=== PATIENT | male | born 1965 | race African-American/Black ===

== ENCOUNTER 2023-09-26 04:41 | Emergency (ER) | payer MEDICAID ==
[~2023-09-26] VITALS: Ht 185.4 cm; Wt 96.0 kg
[2023-09-26 04:47] VITALS: O2SAT 99
[2023-09-26 05:55] LABS: BASOPHILS % 1.3 % (0.0-2.0); EOSINOPHILS % 1.8 % (0.0-5.0); HEMATOCRIT. 39.2 % (42.0-52.0); LYMPHOCYTES % 14.3 % (20.0-50.0); MEAN CORPUSCULAR HGB CONC 33.1 g/dL (31.0-37.0); MEAN CORPUSCULAR VOLUME 87.8 fL (80.0-94.0); MEAN PLATELET VOLUME 7.8 fl (7.4-10.4); MONOCYTES % 9.1 % (2.0-8.0); NEUTROPHILS % 73.5 % (40.0-76.0); PLATELET 232 x1000/uL (130-400); RED BLOOD CELL COUNT 4.47 mill/uL (4.7-6.1); RED CELL DISTRIBUTION WIDTH 15.7 % (11.6-14.6); WHITE BLOOD COUNT 6.7 x1000/uL (4.5-11.0)
[2023-09-26] MEDS: LORAZEPAM 2MG/ML INJ IV ONE (05:56)
[2023-09-26] MEDS: SODIUM CHLORIDE 0.9% 1,000 ML IV ONE (05:56)
[2023-09-26 06:03] LABS: CHLORIDE 99 mEq/L (98-107); SODIUM 133 mEq/L (136-145)
[2023-09-26 06:04] LABS: CALCIUM 8.8 mg/dL (8.7-10.4); CARBON DIOXIDE 20 mEq/L (21-32)
[2023-09-26 06:07] LABS: PROTHROMBIN TIME 11.6 sec (9.6-11.0)
[2023-09-26 06:09] LABS: CREATININE 0.9 mg/dL (0.6-1.3); GLUCOSE 146 mg/dL (70-105); UREA NITROGEN BLOOD 6 mg/dL (9-23)
[2023-09-26 06:10] LABS: ETHANOL BLOOD 37 mg/dL (<10)
[2023-09-26 06:14] LABS: POTASSIUM 2.7 mEq/L (3.5-5.1)
[2023-09-26] MEDS ORDERED: CHLO25CA10 MT (07:09)
[2023-09-26] MEDS ORDERED: GABA800T97 MT (07:09)
[2023-09-26] MEDS ORDERED: LISI10TA26 MT (07:31)
[2023-09-26 07:40] LABS: CLARITY URINE CLEAR (CLEAR); COLOR URINE YELLOW (YELLOW); GLUCOSE URINE NEGATIVE (NEGATIVE); KETONES URINE TRACE (NEGATIVE); LEUKOCYTE ESTERASE URINE NEGATIVE (NEGATIVE); NITRITE URINE NEGATIVE (NEGATIVE); OCCULT BLOOD URINE NEGATIVE (NEGATIVE); PH URINE 6.5 (4.5-8.0); PROTEIN URINE 2+ (NEGATIVE); SPECIFIC GRAVITY URINE 1.014 (1.005-1.030)
[2023-09-26 07:54] LABS: *AMPHETAMINES SCREEN URINE NEGATIVE (NEGATIVE); *BENZODIAZEPINES SCREEN URINE NEGATIVE (NEGATIVE); *COCAINE SCREEN URINE NEGATIVE (NEGATIVE); CANNABINOID URINE SCREEN NEGATIVE (NEGATIVE); ECSTASY MDMA SCREEN URINE NEGATIVE (NEGATIVE); METHADONE URINE SCREEN NEGATIVE (NEGATIVE); OPIATES URINE SCREEN NEGATIVE (NEGATIVE); PHENCYCLIDINE URINE SCREEN NEGATIVE (NEGATIVE)
[2023-09-26 07:58] LABS: BACTERIA URINE RARE; RBC URINE NONE SEEN /hpf (0-2); SQUAMOUS EPITHELIAL CELL URINE NONE SEEN /lpf (RARE/1+); WBC URINE 0-2 /hpf (0-2); YEAST URINE NONE SEEN
[2023-09-26] MEDS: CHLORDIAZEPOXIDE 25MG CAPSULE PO ONE (08:11)
[2023-09-26] MEDS: POTASSIUM CHLORIDE 20MEQ TABLET SR PO ONE (08:11)
[2023-09-26] MEDS: GABAPENTIN 400MG CAPSULE PO ONE (08:11)
[2023-09-26 08:14] VITALS: BP 162/89; PULSE 76; RESP 13; TEMP 98.3
[2023-09-26 10:23] LABS: *BARBITURATES SCREEN URINE NEGATIVE (NEGATIVE)
== END 2023-09-26 08:15 | disposition home or self-care (01) ==
LOC: ER 04:58 → CANBEDREQ 09-28 02:37
DX: F10.239 Alcohol dependence with withdrawal, unspecified (principal); F41.9 Anxiety disorder, unspecified; J45.909 Unspecified asthma, uncomplicated; Y90.1 Blood alcohol level of 20-39 mg/100 ml
CPT/HCPCS: 80305; 80048; 81003; 80320; 83690; 85025; 85610; 36415; 93005; 96361; 96374; 99284; J2060; J7030; Z7610 ×2; G0480